=== PATIENT | female | born 1955 | race Caucasian/White ===

== ENCOUNTER → 2023-06-17 | Outpatient (CLI) | payer MEDICARE, OTHER | END | disposition home or self-care (01) | LOC: RESCLI 13:25 | PROVIDERS: ATTEND Student in an Organized Health Care Education/Training Program | DX: I48.91 Unspecified atrial fibrillation (principal); L40.9 Psoriasis, unspecified; F41.9 Anxiety disorder, unspecified; Z79.01 Long term (current) use of anticoagulants; Z79.899 Other long term (current) drug therapy; Z96.643 Presence of artificial hip joint, bilateral; Z88.5 Allergy status to narcotic agent ==

== ENCOUNTER → 2024-06-15 | Outpatient (CLI) | payer MEDICARE, OTHER | END | disposition home or self-care (01) | LOC: RESCLI 12:15 | PROVIDERS: ATTEND Family Medicine | DX: I48.91 Unspecified atrial fibrillation (principal); L40.9 Psoriasis, unspecified; F41.9 Anxiety disorder, unspecified; Z88.5 Allergy status to narcotic agent; Z79.899 Other long term (current) drug therapy ==